=== PATIENT | female | born 1990 | race Caucasian/White ===

== ENCOUNTER 2016-09-12 17:49 | Inpatient (IN) | payer OTHER ==
[2016-09-12] MEDS ORDERED: IPRATROPIUM 0.5 MG/2.5 ML NEBU INHALATION STA (17:52)
[2016-09-12] MEDS ORDERED: SODIUM CHLORIDE 0.9% 1,000 ML IV STA ×2 (17:52)
[2016-09-12] MEDS ORDERED: ALBUTEROL NEBULIZED 2.5 MG/3 ML INHALATION STA ×2 (17:52→19:59)
[2016-09-12] MEDS ORDERED: LORazepam 2 MG/ML SYRINGE IV STA (17:52)
[2016-09-12] MEDS ORDERED: methylPREDNISolone SOD SUCCI 125 MG/2 ML VIAL IV STA (17:52)
[2016-09-12] MEDS ORDERED: TERBUTALINE 1 MG/ML VIAL SQ STA (17:52)
[2016-09-12] MEDS ORDERED: SODIUM CHLORIDE 0.9% 500 ML IV STA (17:52)
--- NOTE | 2016-09-12 17:54 | ED ---
General Adult HPI - General Stated complaint: DEV Time Seen by Provider: 09/12/16 17:52 Source: RN notes reviewed, old records reviewed - History of Present Illness Initial comments: This is a 26-year-old female here with significant shortness of breath, severe shortness of breath. History of asthma. Patient denies history of smoking. Patient walks in the emergency room with severe shortness of breath, does admit to increased cough and congestion. No known exposures no fevers no chest pain. No travel history no sick contacts. He states this is the worse her breathing has ever been. Patient's history is poor secondary severe clinical condition, shortness of breath and work of breathing - Related Data Allergies Allergy/AdvReac Type Severity Reaction Status Date / Time No Known Allergies Allergy Verified 09/12/16 18:00 Review of Systems ROS Statement: Those systems with pertinent positive or pertinent negative responses have been documented in the HPI. ROS Other: All systems not noted in ROS Statement are negative. General Exam General appearance: alert, anxious, in distress, other (Diaphoretic) Head exam: Present: atraumatic, normocephalic, normal inspection Eye exam: Present: normal appearance, PERRL, EOMI. Absent: scleral icterus, conjunctival injection, periorbital swelling ENT exam: Present: normal exam, mucous membranes moist Neck exam: Present: normal inspection. Absent: tenderness, meningismus, lymphadenopathy Respiratory exam: Present: normal lung sounds bilaterally, respiratory distress , wheezes, accessory muscle use, decreased breath sounds, prolonged expiratory. Absent: rales, rhonchi, stridor Cardiovascular Exam: Present: normal rhythm, tachycardia, normal heart sounds. Absent: systolic murmur, diastolic murmur, rubs, gallop, clicks GI/Abdominal exam: Present: soft, normal bowel sounds. Absent: distended, tenderness, guarding, rebound, rigid Extremities exam: Present: normal inspection, full ROM, normal capillary refill. Absent: tenderness, pedal edema, joint swelling, calf tenderness Back exam: Present: normal inspection Neurological exam: Present: alert, oriented X3, CN II-XII intact Psychiatric exam: Present: normal affect, normal mood Skin exam: Present: warm, dry, intact, normal color. Absent: rash Course Vital Signs 09/12/16 09/12/16 09/12/16 17:55 18:03 18:17 Temperature Pulse Rate 127 H 130 H Respiratory 30 H Rate Blood Pressure 146/88 O2 Sat by Pulse 78 L Oximetry 09/12/16 18:23 Temperature 99.2 F Pulse Rate 129 H Respiratory Rate Blood Pressure 121/68 O2 Sat by Pulse 98 Oximetry - Reevaluation(s) Reevaluation #1: 09/12/16 18:32 Patient decision replaced on BiPAP secondary to severe distress, patient is remaining awake and alert on BiPAP 09/12/16 18:33 Patient was initially profound hypoxic but is improving on oxygen supplement supplementation, placed on a continuous breathing treatment EKG Findings - EKG Comments: EKG Findings:: EKG shows sinus tachycardia rate 124, AZ 150, QRS 68, QTc 460 Medical Decision Making - Medical Decision Making 26 female date ER for evaluation. This patient presents here today for evaluation of significant shortness of breath, severe asthma exacerbation with near respiratory failure, at this point patient is placed on BiPAP, receiving IV fluids steroids terbutaline and magnesium. Patient will be continued on BiPAP. Admitted for continued [id number] breathing treatments, steroids and fluid resuscitation. - Lab Data Result diagrams: 09/12/16 18:11 Lab Results 09/12/16 Range/Units 18:11 WBC 17.1 H (3.8-10.6) k/uL RBC 4.87 (3.80-5.40) m/uL Hgb 14.0 (11.4-16.0) gm/dL Hct 42.3 (34.0-46.0) % MCV 86.8 (80.0-100.0) fL MCH 28.8 (25.0-35.0) pg MCHC 33.2 (31.0-37.0) g/dL RDW 14.7 (11.5-15.5) % Plt Count 367 (150-450) k/uL Neutrophils % 60 % Lymphocytes % 23 % Monocytes % 6 % Eosinophils % 8 % Basophils % 1 % Neutrophils # 10.3 H (1.3-7.7) k/uL Lymphocytes # 4.0 (1.0-4.8) k/uL Monocytes # 1.1 H (0-1.0) k/uL Eosinophils # 1.4 H (0-0.7) k/uL Basophils # 0.1 (0-0.2) k/uL - Radiology Data Radiology results: report reviewed (Chest x-ray is negative for acute disease), image reviewed Critical Care Time Critical Care Time: Yes Total Critical Care Time: 31 Disposition Clinical Impression: Asthma with status asthmaticus, Asthma with exacerbation, Hypoxia Disposition: ADMITTED IP TO THIS HOSP Condition: Critical Referrals: Marin Cruz DO [Primary Care Provider] - 1-2 days
[2016-09-12] MEDS ORDERED: AZITHROMYCIN 500 MG in SODIUM CHLORIDE 0.9% 250 ML IVPB STA (17:58)
[2016-09-12] MEDS: MAGNESIUM SULFATE-D5W PMX 1 GM in DEXTROSE/WATER 1 100ML.BAG IVPB SCH ×2 (18:22→20:45)
[2016-09-12 18:28] LABS: Basophils # (A) 0.1 k/uL (0-0.2); Basophils % (A) 1 %; CH 28.6; Eosinophils # (A) 1.4 k/uL (0-0.7); Eosinophils % (A) 8 %; HCT 42.3 % (34.0-46.0); HDW 2.65; Luc % (Auto) 2; Lymphocytes % (A) 23 %; MCH 28.8 pg (25.0-35.0); MCHC 33.2 g/dL (31.0-37.0); MCV 86.8 fL (80.0-100.0); Monocytes # (A) 1.1 k/uL (0-1.0); Monocytes % (A) 6 %; Neutrophils # (A) 10.3 k/uL (1.3-7.7); Neutrophils % (A) 60 %; RBC 4.87 m/uL (3.80-5.40); RDW 14.7 % (11.5-15.5); WBC 17.1 k/uL (3.8-10.6); WBC (Perox) 16.44
[2016-09-12 18:38] LABS: Partial Thromboplastin Time 24.8 sec (22.0-30.0); Prothrombin Time 10.6 sec (9.0-12.0)
[2016-09-12] MEDS ORDERED: LEVALBUTEROL NEB 1.25 MG/3 ML AMP INHALATION PRN (18:38)
[2016-09-12 18:40] LABS: ALT 47 U/L (9-52); AST 43 U/L (14-36); Alkaline Phosphatase 87 U/L (38-126); Anion Gap 8 mmol/L; Blood Urea Nitrogen 7 mg/dL (7-17); Calcium 8.8 mg/dL (8.4-10.2); Carbon Dioxide 27 mmol/L (22-30); Chloride 107 mmol/L (98-107); Glucose 87 mg/dL (74-99); Magnesium 2.1 mg/dL (1.6-2.3); Non-African American GFR(MDRD) >60 (>60 ml/min/1.73 sqM); Potassium 4.6 mmol/L (3.5-5.1); Sodium 142 mmol/L (137-145); Total Bilirubin 0.6 mg/dL (0.2-1.3); Total Protein 6.8 g/dL (6.3-8.2)
--- NOTE | 2016-09-12 18:48 | XR ---
EXAMINATION TYPE: XR chest 1V portable DATE OF EXAM: 09/12/2016 COMPARISON: NONE HISTORY: Short of breath TECHNIQUE: Single frontal view of the chest is obtained. FINDINGS: Heart and mediastinum are normal. Lungs are clear of consolidation. There is no heart fail ure. There is no pleural effusion. There are chest leads. IMPRESSION: No active cardiopulmonary disease.
[2016-09-12 18:52] LABS: Creatine Kinase 105 U/L (30-135)
[2016-09-12 19:05] LABS: Creatine Kinase MB 1.3 ng/mL (0.0-2.4); Troponin I <0.012 ng/mL (0.000-0.034)
[2016-09-12 19:45] LABS: ABG PCO2 49 mmHg (35-45); ABG PH 7.29 (7.35-7.45); ABG PO2 183 mmHg (83-108)
[2016-09-12 19:46] LABS: ABG Base Excess -2.8 mmol/L; ABG HCO3 23 mmol/L (21-25); ABG TCO2 24 mmol/L (19-24)
[2016-09-12] MEDS ORDERED: LORazepam 2 MG/ML SYRINGE IV PRN (20:00)
[2016-09-12] MEDS ORDERED: RX INFO: IV CONTRAST WAS GIVEN 1 EACH MISC MISCELLANE PRN (21:18)
--- NOTE | 2016-09-12 21:55 | CT ---
EXAMINATION TYPE: CT angio chest DATE OF EXAM: 09/12/2016 9:47 PM COMPARISON: NONE HISTORY: Patient complains of difficulty breathing. Patient displays chest congestion, wheezing, and cough. CT DLP: 361.3 mGycm Automated exposure control for dose reduction was used. CONTRAST: CTA scan of the thorax is performed with IV Contrast, patient injected with 100 mL of Omnipaque 300, pulmonary embolism protocol. There are 3-D post processed images.. FINDINGS: There is patchy groundglass interstitial pulmonary infiltrate bilaterally. There is no pleural effusi on. There is minimal subsegmental atelectasis at the lung bases. There is no evidence of pulmonary ma ss. There is no pleural effusion. There are a few mediastinal lymph nodes and bronchial lymph nodes that measure up to 1 cm. I see no filling defects in the pulmonary arteries. There is no evidence of aorti c aneurysm or dissection. Bony thorax is intact. IMPRESSION: NO EVIDENCE OF PULMONARY EMBOLISM. THERE IS MILD MEDIASTINAL AND BRONCHIAL ADENOPATHY WITH INTERSTITI AL DENSITY. THIS COULD RELATE TO SARCOIDOSIS.
[2016-09-12 22:45] LABS: Glucose,Whole Blood 162 mg/dL (75-99)
[2016-09-12] MEDS: IPRATROPIUM-ALBUTEROL 3 ML NEB INHALATION SCH (23:17)
[2016-09-13 00:38] VITALS: BMI 39.9
[2016-09-13] MEDS: methylPREDNISolone SOD SUCCI 125 MG/2 ML VIAL IV SCH ×4 (01:10→18:13)
[2016-09-13 07:11] LABS: Glucose,Whole Blood 166 mg/dL (75-99)
[2016-09-13] MEDS: IPRATROPIUM-ALBUTEROL 3 ML NEB INHALATION SCH ×4 (07:23→20:07)
[2016-09-13] MEDS: SODIUM CHLORIDE 0.9% 1,000 ML IV SCH ×2 (08:52→13:35)
[2016-09-13] MEDS ORDERED: MONTELUKAST 10 MG TAB PO ONE (09:00)
[2016-09-13] MEDS: SYMBICORT 160-4.5 MCG INHALER INHALATION SCH ×2 (10:59→20:07)
[2016-09-13] MEDS: ALPRAZolam 0.25 MG TAB PO PRN ×2 (12:40→13:28)
--- NOTE | 2016-09-13 14:28 | P.CNPUL ---
History of Present Illness Consult date: 09/13/16 Requesting physician: Rohan Eid Reason for consult: other (ICU management, status asthmaticus) Chief complaint: Shortness of breath History of present illness: This is a 26-year-old female patient being seen, examined and evaluated today in the intensive care unit. This patient came into the emergency room with severe shortness of breath and has an extensive history of asthma with multiple admissions of exacerbation in the past. Patient was currently out camping with her family nearby when she became short of breath which rapidly became severe and her family brought her to the hospital. While in the ER the patient was placed on BiPAP due to profound hypoxia with respiratory distress also given IV steroids, terbutaline and magnesium. This patient does have a significant history of having uncontrolled asthma since she's been 14 years old. Upon examination the patient's resting up in bed on 4 L of supplemental oxygen, the patient also appears anxious and tearful. Patient did receive a CTA yesterday which has been reviewed and shows no evidence of pulmonary embolism, there is mild mediastinal and bronchial adenopathy with interstitial density that could relate to sarcoidosis. Of note the patient states that she does live at home with with dogs and she is unsure if her asthma has an ALLERGIC component. Review of Systems 14 point review of systems was completed and is negative unless noted above in the HPI. Past Medical History Past Medical History: Asthma History of Any Multi-Drug Resistant Organisms: None Reported Past Psychological History: Anxiety, Depression Smoking Status: Former smoker Past Alcohol Use History: None Reported Past Drug Use History: None Reported Medications and Allergies Home Medications Medication Instructions Recorded Confirmed Type Albuterol Inhaler [Ventolin Hfa 1 - 2 puff INHALATION RT-Q6H PRN 09/12/16 History Inhaler] Albuterol Nebulized [Ventolin 2.5 mg INHALATION RT-Q4H PRN 09/12/16 09/12/16 History Nebulized] Cyclobenzaprine [Flexeril] 5 mg PO TID 09/12/16 09/12/16 History Insulin NPH Human Isophane 20 unit SQ QAM 09/12/16 09/12/16 History [NovoLIN N] predniSONE 20 mg PO TID 09/12/16 09/12/16 History traMADol HCL [Ultram] 50 mg PO TID 09/12/16 09/12/16 History Montelukast Sodium [Singulair] 10 mg PO DAILY 09/13/16 09/13/16 History Allergies Allergy/AdvReac Type Severity Reaction Status Date / Time No Known Allergies Allergy Verified 09/12/16 19:13 Physical Exam Vitals: Vital Signs Temp Pulse Resp BP Pulse Ox 09/13/16 11:11 90 09/13/16 11:03 92 09/13/16 10:00 21 120/81 94 L 09/13/16 09:00 99 120/81 94 L 09/13/16 08:00 98.6 F 103 H 19 147/77 94 L 09/13/16 07:41 98 09/13/16 07:26 88 95 09/13/16 07:00 108 H 51 H 128/71 09/13/16 06:00 85 10 L 112/68 93 L 09/13/16 05:50 90 09/13/16 05:41 93 09/13/16 05:00 83 6 L 128/69 95 09/13/16 04:00 85 12 120/64 96 09/13/16 03:00 89 12 125/61 97 09/13/16 02:00 101 H 12 148/82 93 L 09/13/16 01:00 105 H 18 148/82 98 09/13/16 00:00 18 87/54 09/12/16 23:30 102 H 09/12/16 23:17 101 H 95 09/12/16 23:00 107 H 18 133/71 94 L 09/12/16 22:40 98.1 F 100 09/12/16 22:17 105 H 18 116/60 98 09/12/16 21:54 99 18 124/66 09/12/16 21:03 102 H 112/73 94 L 09/12/16 20:56 94 L 09/12/16 20:41 93 L 09/12/16 20:34 108 H 09/12/16 20:27 116 H 18 114/73 98 09/12/16 20:14 118 H 09/12/16 20:03 98.9 F 110 H 18 109/65 96 09/12/16 19:43 112 H 115/58 98 09/12/16 19:25 115 H 09/12/16 19:04 123 H 09/12/16 18:43 132 H 113/56 97 09/12/16 18:31 131 H 09/12/16 18:23 99.2 F 129 H 121/68 98 09/12/16 18:17 130 H 09/12/16 18:03 146/88 09/12/16 17:55 127 H 30 H 78 L Intake and Output 09/12/16 09/13/16 09/13/16 22:59 06:59 14:59 Intake Total 800 200 Balance 800 200 Intake: IV 800 200 Sodium Chloride 0.9% 1, 800 200 000 ml @ 100 mls/hr IV . Q10H STA Rx#:[id number] Other: # Voids 0 Weight 92.9 kg 92.9 kg GENERAL EXAM: Alert, active, comfortable in no apparent distress. HEAD: Normocephalic. EYES: Normal reaction of pupils, equal size. NOSE: Clear with pink turbinates. THROAT: No erythema or exudates. NECK: No masses, no JVD. CHEST: No chest wall deformity. LUNGS: Equal air entry, patient noted to have and expiratory wheezes. Bases diminished. CVS: S1 and S2 normal with no audible mumurs, regular rhythm. ABDOMEN: No hepatosplenomegaly, normal bowel sounds, no guarding or rigidity. EXTREMITIES: No edema noted, pedal pulses palpable. SKIN: No rashes CENTRAL NERVOUS SYSTEM: No focal deficits, tone is normal in all 4 extremities. Results - Laboratory Findings CBC and BMP: 09/12/16 18:11 09/12/16 18:11 ABG ABG pH 7.29 (7.35-7.45) L 09/12/16 19:32 ABG pCO2 49 mmHg (35-45) H 09/12/16 19:32 ABG pO2 183 mmHg (83-108) H 09/12/16 19:32 ABG O2 Saturation 100.0 % (94-97) H 09/12/16 19:32 PT/INR, D-dimer PT 10.6 sec (9.0-12.0) 09/12/16 18:11 INR 1.0 (<1.2) 09/12/16 18:11 D-Dimer 0.63 mg/L FEU (<0.60) H 09/12/16 18:11 Abnormal lab findings: Abnormal Labs 09/12/16 09/12/16 09/12/16 18:11 18:11 18:11 WBC 17.1 H Neutrophils # 10.3 H Monocytes # 1.1 H Eosinophils # 1.4 H D-Dimer 0.63 H ABG pH ABG pCO2 ABG pO2 ABG O2 Saturation POC Glucose (mg/dL) AST 43 H 09/12/16 09/12/16 09/13/16 19:32 22:43 07:07 WBC Neutrophils # Monocytes # Eosinophils # D-Dimer ABG pH 7.29 L ABG pCO2 49 H ABG pO2 183 H ABG O2 Saturation 100.0 H POC Glucose (mg/dL) 162 H 166 H AST - Diagnostic Findings Chest x-ray: report reviewed, image reviewed CT scan - chest: report reviewed, image reviewed Assessment and Plan Plan: Assessment Status asthmaticus Acute hypoxic respiratory failure Mild mediastinal and bronchial adenopathy with interstitial densities probable sarcoidosis Chronic severe persistent asthma, uncontrolled Anxiety Plan We'll obtain an IgE, hypersensitivity pneumonitis, and [place] ALLERGY panel lab work on the patient. We will also obtain alpha 1 antitrypsin on the patient. Medications have been reviewed and will be continued as ordered. We will add when necessary Xanax for the patient's anxiety. Continue with pulmonary hygiene, coughing and deep breathing exercises, and supportive care. Supplemental oxygen and/or BiPAP to maintain oxygen saturations of 92% or better. Continue nebulizer treatments. GI and DVT prophylaxis. We will continue to monitor labs/results and adjust treatment as necessary. Further recommendations pending. I performed an examination of the patient and discussed their management with the nurse practitioner. I have reviewed the nurse practitioner's note and agree with the documented findings and plan of care.
[2016-09-13 14:33] VITALS: RESP 20; TEMP 98.3
[2016-09-13 15:15] VITALS: BP 133/74
[2016-09-13 16:07] VITALS: PULSE 94
[2016-09-14] MEDS ORDERED: MONTELUKAST 10 MG TAB PO SCH (09:00)
--- NOTE | 2016-09-14 10:25 | HP ---
CHIEF COMPLAINT: 26 -year-old white female in the ICU for significant shortness of breath, history of asthma on multiple admissions in the past year, every 2 to 3 months she gets hospitalized. She has chronic asthma and allergic rhinitis for many years. She was given IV steroids, ( ) magnesium and BIPAP , and four days of oxygen. Admitted to ICU. CT was done, which no pulmonary embolism. There was mild mediastinal bronchial adenopathy that interstitial densities could be sarcoidosis. She has dogs at home. She has asthma. Allergic component. 14 points review of systems negative except for as mentioned in HPI . Past medical history: History of asthma, anxiety, depression. SOCIAL HISTORY: She is second hand smoke, under a lot of stress. MEDICATIONS: 1. Advair 500/50 one puff b.i.d. 2. Fast acting Albuterol inhaler. 3. Norolon-N 20 units daily. 4. Prednisone 20 t.i.d. 5. Tramadol 50 t.i.d. 6. Singular 10 b.i.d. ALLERGIES: Negative. REVIEW OF SYSTEMS: Temp 98.6, pulse 90s to 100, respiratory rate 18 to 20, blood pressure 120s to 140s over 70s to 80s. O2 93 to 97% on 4 L. She is sitting up in bed in no acute distress. Lungs shows scattered wheeze times four. Decreased breath sounds times four. Cardiovascular: S1, S2 tachycardic. No murmurs, rubs or gallops. Abdomen soft, nontender. No mass or organomegaly. Hematological negative Homans. Extremities: No cyanosis, clubbing or edema. Integument: No rashes, excoriation or bruising. CHEST: No chest wall tenderness. White count 17.1, hemoglobin 14.0. Sodium 142, potassium 4.6, D. dimer 0.63. White count 17.1. D. dimer 0.63. Eosinophils ( ). ASSESSMENT: 1. Status asthmaticus. 2. Acute hypoxemic respiratory failure. 3. Possible sarcoidosis. 4. Chronic severe persistent asthma, anxiety. 5. IV steroids. 6. IGE. 7. [place] allergy. 8. Alpha-1 antitrypsin. 9. Anxiety. Continue current treatment. Steroids thru the IV. Follow up in the next 24 to 48 hours. MTDD
[2016-09-14 10:34] LABS: Alternaria alternata IgE 7.31 kU/L (<0.35); Asperg. fumagatus IgE 1.02 kU/L (<0.35); Asperg. fumagatus IgE Class CLASS II; Birch(Com.Silvr) IgE Class CLASS 0; Cat Epith & Dander IgE Class CLASS IV; Clad herbarum IgE 4.62 kU/L (<0.35); Clad herbarum IgE Class CLASS III; Common Ragweed IgE Class CLASS I; Dermato. Pteronyssinus Class CLASS II; Dermato. Pteronyssinus IgE 1.48 kU/L (<0.35); Dermato. farinae IgE 1.33 kU/L (<0.35); Dermato. farinae IgE Class CLASS II; Maple (Box Elder) IgE Class CLASS II; Mountain Cedar IgE 0.43 kU/L (<0.35); Mountain Cedar IgE Class CLASS I; Mouse Urine IgE Class CLASS 0; Mouse Urine Proteins,IgE <0.35 kU/L (<0.35); Mulberry IgE Class CLASS 0; Nettle IgE 0.82 kU/L (<0.35); Nettle IgE Class CLASS II; Oak IgE <0.35 kU/L (<0.35); Penicillium notatum IgE Class CLASS 0; Rough Marshelder IgE 0.73 kU/L (<0.35); Rough Marshelder IgE Class CLASS II; Timothy Grass IgE 0.65 kU/L (<0.35); Timothy Grass IgE Class CLASS I; White Ash IgE Class CLASS 0
== END 2016-09-14 00:54 | disposition left against medical advice (07) | DRG 202 ==
LOC: EC 17:49 → 6ICU 18:38 → 4MS4W 09-13 11:58
PROVIDERS: ADMIT Family Medicine; ATTEND Family Medicine
DX: J45.52 Severe persistent asthma with status asthmaticus (principal); J96.01 Acute respiratory failure with hypoxia; F41.9 Anxiety disorder, unspecified; Z87.891 Personal history of nicotine dependence; Z79.4 Long term (current) use of insulin; Z79.899 Other long term (current) drug therapy; Z79.52 Long term (current) use of systemic steroids; F32.9 Major depressive disorder, single episode, unspecified; D86.9 Sarcoidosis, unspecified
CPT/HCPCS: 36415; 36600; 71010; 71275; 80053; 82550; 82553; 82785; 82805; 83735; 84484; 85025; 85379; 85610; 85730; 86001; 86003; 86606; 86609; 93005; 94640; 94644; 94660; 96361; 96365; 96366; 96367; 96372; 96375; 99291